=== PATIENT | male | born 1940 | race Caucasian/White ===

== ENCOUNTER 2020-02-13 13:25 | Outpatient (CLI) | payer MEDICARE, BC, SELFPAY ==
--- NOTE | ~2020-02-13 | CT_ITS ---
EXAMINATION: CT abdomen pelvis wo con DATE: 02/13/2020 14:19 INDICATION: Bilateral flank pain. Elevated PSA. TECHNIQUE: Computed tomography (CT) of the abdomen and pelvis was performed without intravenous contr ast. Automated exposure control and iterative reconstruction technique were employed. The dose-length product was 574.07 mGy-cm. COMPARISON: None. FINDINGS: The visualized portions of the lung bases demonstrate minimal atelectasis. There are a few nodules in the lungs measuring up to 5 mm, likely benign. A calcified left lung nodule is consistent with old granulomatous disease. No pleural effusion. The heart size is normal. No pericardial effusio n. There are pacer wires in right atrium, right ventricle, and coronary sinus. There is a small slidi ng hiatal hernia. There is a 4.6 cm cyst in the liver. There are changes of cholecystectomy. The sple en, pancreas, adrenal glands, and kidneys are normal. The prostate is severely enlarged. There is div erticulosis of the colon without evidence of diverticulitis. There are no dilated loops of bowel. The appendix is normal. There are no pathologically enlarged lymph nodes. There is no free intraperitone al fluid. There is a small left inguinal hernia containing fat. There is moderate lumbar spondylosis. IMPRESSION: 1. Severely enlarged prostate. 2. Small sliding hiatal hernia. 3. Left inguinal hernia containing fat. Reviewed, dictated and finalized at location A.
== END 2020-02-13 13:26 | disposition home or self-care (01) ==
LOC: ANHIMG 13:36
PROVIDERS: Visit Provider Urology
DX: Z87.442 Personal history of urinary calculi (principal); N40.0 Benign prostatic hyperplasia without lower urinary tract symptoms; K44.9 Diaphragmatic hernia without obstruction or gangrene; K40.90 Unilateral inguinal hernia, without obstruction or gangrene, not specified as recurrent
CPT/HCPCS: 74176

== ENCOUNTER 2021-12-23 10:06 | Outpatient (CLI) | payer MEDICARE, SELFPAY ==
[2021-12-23 10:26] LABS: Basophils Absolute Auto 0.07 K/mm3 (0.00-0.10); Basophils Percent Auto 0.7 % (0.0-1.0); Eosinophils Absolute Auto 0.44 K/mm3 (0.02-0.50); Eosinophils Percent Auto 4.3 % (1.0-6.0); Hematocrit 44.9 % (37.0-46.0); Hemoglobin 14.4 g/dL (12.4-15.3); Immature Granulocyte Absolute 0.13 K/mm3 (0.00-0.00); Immature Granulocyte Percent A 1.3 % (0.0-0.0); Lymphocytes Percent Auto 23.6 % (18.0-42.0); Mean Corpuscular HGB Conc 32.1 g/dL (32.0-36.0); Mean Corpuscular Hemoglobin 32.5 pg (27.0-31.0); Mean Corpuscular Volume 101.4 fL (78.0-102.0); Mean Platelet Volume 9.1 fl (8.7-11.0); Monocytes Absolute Auto 1.06 K/mm3 (0.10-0.90); Monocytes Percent Auto 10.4 % (2.0-11.0); Neutrophils Absolute Auto 6.1 K/mm3 (1.7-7.2); Neutrophils Percent Auto 59.7 % (50.0-70.0); Platelet Count Result 252 K/mm3 (150-420); Red Blood Count 4.43 M/mm3 (4.70-6.10); Red Cell Distribution Width 12.3 % (11.6-14.4); White Blood Count 10.2 K/mm3 (4.8-10.8)
[2021-12-23 10:40] LABS: Anion Gap 3 mmol/L (8-16); Blood Urea Nitrogen 19 mg/dL (7-18); Calcium 9.5 mg/dL (8.5-10.1); Carbon Dioxide 29 mmol/L (21-32); Chloride 104 mmol/L (98-108); Estimated Glomerular Filt Rate 57; Glucose 121 mg/dL (70-99); Osmolality Calculated 285 mOsm/kg (285-295); Potassium 4.5 mmol/L (3.5-5.1); Sodium 136 mmol/L (136-145)
== END 2021-12-23 10:07 | disposition home or self-care (01) ==
LOC: CHSLAB 10:12
PROVIDERS: Visit Provider Internal Medicine
DX: I42.8 Other cardiomyopathies (principal)
CPT/HCPCS: 36415; 80048; 85025

== ENCOUNTER 2024-03-31 09:21 | Outpatient (CLI) | payer MEDICARE, BC, SELFPAY ==
--- NOTE | ~2024-03-31 | CT_ITS ---
EXAMINATION: CT thoracic lumbar wo con DATE: 03/31/2024 10:19 INDICATION: Acute bilateral low back pain. Fall. TECHNIQUE: Computed tomography (CT) of the thoracic and lumbar spine was performed without intravenou s contrast. Automated exposure control and iterative reconstruction technique were employed. The dose -length product was 2218.03 mGy-cm. COMPARISON: CT abdomen and pelvis 02/13/2020 FINDINGS: CT THORACIC SPINE: There is a small sliding hiatal hernia. There is 7 degrees levocurvature of upper thoracic spine. There is mild chronic anterior wedging of T1 and T6 vertebral bodies. There is a burs t fracture of T12 with 1/5 loss of height. Intervertebral disc heights are normal. There is multileve l facet joint osteoarthritis, severe on the right at T11-T12. On the right, there is mild neural fora turner stenosis at T1-T2 and T12-L1. On the left, there is mild neural foraminal stenosis at L1-L2. Th ere is mild central canal stenosis at T12. CT LUMBAR SPINE: The prostate is severely enlarged. There is 9 degrees dextrocurvature of lumbar spin e. There is mild chronic anterior wedging of L1 vertebral body. There is severe decreased disc height at L3-L4 and L5-S1. The following disc levels are specifically discussed: L1-L2: The disc does not extend beyond the endplate margin. There is mild bilateral facet joint osteo arthritis. There is no neural foraminal stenosis. There is no central canal stenosis. L2-L3: The disc is bulging. There is mild bilateral facet joint osteoarthritis. There is mild bilater al neural foraminal stenosis. There is mild central canal stenosis. L3-L4: The disc is bulging. There is moderate right and severe left facet joint osteoarthritis. There is moderate bilateral neural foraminal stenosis. There is mild central canal stenosis. L4-L5: The disc is bulging. There is severe bilateral facet joint osteoarthritis. There is moderate r ight and mild left neural foraminal stenosis. There is mild central canal stenosis. L5-S1: The disc is bulging. There is severe bilateral facet joint osteoarthritis. There is moderate r ight and mild left neural foraminal stenosis. There is mild central canal stenosis. IMPRESSION: 1. Acute versus subacute T12 burst fracture. 2. Mild thoracic spondylosis and severe lumbar spondylosis. Reviewed, dictated and finalized at location A.
--- NOTE | ~2024-03-31 | CT_ITS ---
EXAMINATION: CT cervical spine wo con DATE: 03/31/2024 10:19 INDICATION: Acute back pain. Fall. TECHNIQUE: Computed tomography (CT) of the cervical spine was performed without intravenous contrast. Automated exposure control and iterative reconstruction technique were employed. The dose-length pro duct was 382.86 mGy-cm. COMPARISON: None FINDINGS: There is hypolordosis of cervical spine.. There is mild chronic anterior wedging of C7 and T1 vertebral bodies. There is severely decreased disc height from C3-C4 through C7-T1. The following disc levels are specifically discussed: C2-C3: There is moderate right uncovertebral joint osteoarthritis. There is severe bilateral facet reshma int osteoarthritis. There is mild right neural foraminal stenosis. There is no central canal stenosis . C3-C4: There is severe bilateral uncovertebral joint osteoarthritis. There is severe right and modera te left facet joint osteoarthritis. There is moderate bilateral neural foraminal stenosis. There is m ild central canal stenosis. C4-C5: There is severe bilateral uncovertebral joint osteoarthritis. There is severe right and modera te left facet joint osteoarthritis. There is moderate bilateral neural foraminal stenosis. There is m ild central canal stenosis. C5-C6: There is severe bilateral uncovertebral joint osteoarthritis. There is severe bilateral facet joint osteoarthritis. There is mild bilateral neural foraminal stenosis. There is mild central canal stenosis. C6-C7: There is severe bilateral uncovertebral joint osteoarthritis. There is severe bilateral facet joint osteoarthritis. There is mild bilateral neural foraminal stenosis. There is mild central canal stenosis. C7-T1: There is severe bilateral uncovertebral joint osteoarthritis. There is severe bilateral facet joint osteoarthritis. There is mild bilateral neural foraminal stenosis. There is no central canal st enosis. IMPRESSION: 1. No acute fracture. 2. Severe cervical spondylosis. Reviewed, dictated and finalized at location A.
== END 2024-03-31 09:22 | disposition home or self-care (01) ==
LOC: CHSIMG 09:26
DX: M54.50 Low back pain, unspecified (principal); R20.2 Paresthesia of skin; R97.20 Elevated prostate specific antigen [PSA]; S22.081A Stable burst fracture of T11-T12 vertebra, initial encounter for closed fracture; M43.04 Spondylolysis, thoracic region; M43.06 Spondylolysis, lumbar region; M43.02 Spondylolysis, cervical region
CPT/HCPCS: 72125; 72128; 72131

== ENCOUNTER 2024-05-24 12:37 | Outpatient (RCR) | payer MEDICARE, BC, SELFPAY ==
--- NOTE | 2024-05-24 14:58 | OPREHPOC ---
Outpatient Therapy Plan of Care This is a Multidisciplinary Plan of Care that may contain components documented by all disciplines (PT, OT, and ST.) PT Problem 1 PT Problem #1 Knowledge Deficit PT Goal 1 Goal / Goal Update The patient will be independent in a home exercise program. Target Visit 4 PT Problem 2 PT Problem #2 Pain PT Goal 1 Goal / Goal Update 1. The patient will be report no greater than 2/10 low back pain with standing to wash dishes. 2. The patient will report the ability to drive 30 + minutes without an increase in low back pain. Target Visit 12 PT Problem 3 PT Problem #3 Impaired Functional Mobil PT Goal 1 Goal / Goal Update 1. The patient will demonstrate 30% or less self perceived disability per the Back Index questionnaire. 2. The patient will demonstrate the ability to transfer sit to stand without the use of the UE to improve strength for functional abilities. PT Goal 2 Target Visit 12 PT Problem 4 PT Problem #4 Impaired Strength PT Goal 1 Goal / Goal Update The patient will demonstrate 4/5 bilateral glut med and glut max strength to provide support for ambulation and transfers. Target Visit 12
--- NOTE | 2024-05-24 14:58 | PTOPEVAL1 ---
Assessment and note entered by Jaclyn Martin, PT Evaluation Information Assessment Status Evaluation Diagnosis T12 burst fracture ICD-10 Condition Codes (PT) M54.6 Other ICD-10 Condition Codes ( S22.081A PT) Onset 04/25/24 Subjective Information Negro Alfaro reports he fell about a month ago and sustained a T12 burst fracture. He was trying to lift a piece of furniture and he felt a pop in his back. He had severe pain and that caused him to fall forward. He did not hit his head as he fell though. He went to the doctor about 3 weeks after the injury because the pain was not going away. He has had 2 x-rays and a CT scan that showed the burst fracture and 2 herniated discs. He has a pacemaker that was originally placed 10 years ago. He reports he has had low back pain prior to the fall but he is noting increased pain with laying flat in bed or when he coughs or sneezes. He also notes pain with driving more than 20 minutes. He also has increased pain with standing more than 10 minutes. He has been on a lifting restriction of 15# prior to his fall due to his heart. He also has SOB due to his cardiac issues that leads to inability to walk more than 2 blocks. Reported Pain Level Pain Score 0: Self Report Assessment PT Clinical Summary Negro Alfaro presents with low back pain after a fall in March 2024. He has had a CT scan that showed a T12 burst fracture and bulging discs in the lumbar spine. He has difficulty with sneezing, coughing, getting in and out of bed, getting out of chairs, and prolonged sitting or standing. He objectively demonstrates decreased lumbar AROM, decreased bilateral hamstring flexibility, decreased core and hip girdle strength, and decreased transfer ability. He will benefit from skilled PT to address these limitations. Plan of Care Interventions Electrical Stimulation,Hot Pack/Cold Pack,Manual Therapy,Neuro Re-education,Patient/Caregiver Educati,Therapeutic Activities,Therapeutic Exercise PT Services Indicated Yes Treatment Frequency and 2 times a week for 12 visits Duration These treatments will address the objective and functional deficits as defined above. The patient will be advanced safely and appropriately in order for the patient to progress towards his/her prior level of function. Additional exercises will be introduced and as well as a comprehensive home exercise program upon discharge, if needed, ?to ensure carryover of functional gains achieved in the clinic. This treatment plan has been reviewed and agreement upon by the patient.
--- NOTE | 2024-06-20 13:12 | PCPTNOTE ---
Addendum entered by Dorothy Bellamy, TABLE GAMES DUAL RATE SUPERVISOR 06/20/24 13:25: Called MD to clarify that patient is to hold on therapy until other tests are completed and reviewed with patient. Original Note: Holding on therapy per MD recommendation.
--- NOTE | 2024-07-19 14:58 | PCPTNOTE ---
07/19/24: Pt last seen on 06/15/24 and was put on hold. No additional orders received so pt will be discharged. -Jaclyn Martin, PT
== END 2024-06-15 14:30 | disposition home or self-care (01) ==
LOC: CHSPT 12:37
DX: S22.081D Stable burst fracture of T11-T12 vertebra, subsequent encounter for fracture with routine healing (principal)
CPT/HCPCS: 97110; 97161; 97530

== ENCOUNTER 2024-06-23 12:51 | Outpatient (CLI) | payer MEDICARE, BC, SELFPAY ==
--- NOTE | ~2024-06-23 | CT_ITS ---
EXAMINATION: CT thoracic spine wo con DATE: 06/23/2024 13:18 INDICATION: T12 burst fracture. TECHNIQUE: Computed tomography (CT) of the thoracic spine was performed without intravenous contrast. Automated exposure control and iterative reconstruction technique were employed. The dose-length pro duct was 2787.09 mGy-cm. COMPARISON: CT thoracic spine 03/31/2024 FINDINGS: There is 5 degrees levocurvature of upper thoracic spine. There is mild chronic anterior we dging of T6 vertebral body. There is a burst fracture of T12 with 2/5 loss of height and focal kyphos is. Intervertebral disc heights are normal. There is multilevel facet joint osteoarthritis, severe on the right at T11-T12. On the right, there is mild neural foraminal stenosis at T11-T12. There is mil d central canal stenosis at T7-T8 and T11-T12. IMPRESSION: 1. T12 burst fracture, worsened from 03/31/2024. 2. Mild thoracic spondylosis. Reviewed, dictated and finalized at location A. 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
== END 2024-06-23 12:52 | disposition home or self-care (01) ==
DX: S22.081A Stable burst fracture of T11-T12 vertebra, initial encounter for closed fracture (principal); M43.04 Spondylolysis, thoracic region
CPT/HCPCS: 72128